=== PATIENT | female | born 1995 | race Caucasian/White ===

== ENCOUNTER 2017-02-02 19:36 | Emergency (ER) | payer BC ==
--- NOTE | ~2017-02-02 | ER ---
PATIENT'S NAME: [facility] AGE: 21 Y [address] ROOM: [place] [address] LOCATION: [facility] ADMIT DATE: 02/02/2017 ER/Outpatient Report DISCHARGE DATE: 02/02/2017 FAMILY PHYSICIAN: Willie Milner MD ATTENDING PHYSICIAN: Ubaldo Stephens Time of Arrival: 1936 hours. Time of Evaluation: 1943 hours. CHIEF COMPLAINT: Possible bite. HISTORY OF PRESENT ILLNESS: The patient is a 21-year-old female, who presents to the emergency department today with chief complaint of possible bites. She reports that it occurred 5 days prior to arrival. It is under her right armpit as well as her left arm. She denies any pain, had some mild itching. No fevers or chills. No nausea or vomiting. No diarrhea or constipation. No chest pain or shortness of breath. PAST MEDICAL HISTORY: None. PAST SURGICAL HISTORY: . SOCIAL HISTORY: The patient denies any tobacco use. Reports occasional alcohol use. Denies any illicit drug use. ALLERGIES: NO KNOWN DRUG ALLERGIES. MEDICATIONS: None. PRIMARY CARE DOCTOR: Willie Milner MD. REVIEW OF SYSTEMS: All systems are reviewed by myself and negative with the exception of those discussed in HPI and past medical history. PHYSICAL EXAMINATION: VITAL SIGNS: Weight 76.8 kg, blood pressure 128/87, pulse 67, respiratory PATIENT'S NAME: [facility] AGE: 21 Y [address] ROOM: [place] [address] LOCATION: [facility] ADMIT DATE: 02/02/2017 ER/Outpatient Report DISCHARGE DATE: 02/02/2017 FAMILY PHYSICIAN: Willie Milner MD ATTENDING PHYSICIAN: Ubaldo Stephens rate 16, temperature 99.4, oxygen saturation 99% on room air. GENERAL: The patient is a 21-year-old female, who appears stated age, in no acute distress at this time. HEENT: Head: Normocephalic, atraumatic. Pupils are equal, round, and reactive to light. NECK: Supple. There is no nuchal rigidity. CARDIOVASCULAR: Regular rate and rhythm. LUNGS: Clear to auscultation. ABDOMEN: Soft, nontender, and nondistended. No rebound, rigidity, or guarding. MUSCULOSKELETAL: The patient moves all 4 extremities. SKIN: The patient does have erythematous lesion under the right armpit. There is some mild petechiae noted as well. There is no fluctuance or induration noted. Left lateral aspect of her deltoid also have similar type lesion. LABORATORY DATA AND X-RAYS: None. IMPRESSION: 1. Rash with suspected insect versus spider bite. 2. Initial visit. EMERGENCY DEPARTMENT COURSE: The patient was brought back to the examination room. Seen and evaluated by myself. History and physical performed as described above. I have discussed the results of history and physical with the patient. I do suspect this is likely a bite from either an insect or a spider. I have discussed using hydrocortisone cream. I have recommended [id number] hydrocortisone cream to use for itch. I have discussed wound care. I have discussed return to care instructions including worsening symptoms or any other concerns return to the emergency department as soon as possible. The patient is agreeable without further questions at this time. DISPOSITION: The patient discharged home in good condition. DO CORY QUINTEROS/mireille PATIENT'S NAME: IZABELA ALVARADO [facility] AGE: 21 Y [address] ROOM: [place] [address] LOCATION: [facility] ADMIT DATE: 02/02/2017 ER/Outpatient Report DISCHARGE DATE: 02/02/2017 FAMILY PHYSICIAN: Willie Milner MD ATTENDING PHYSICIAN: Ubaldo Stephens /[id number] d: 02/03/17 0058 t: 02/04/17 0546, OUTPATIENT REPORT
[~2017-02-02 19:36] MED LIST: ACETAMINOPHEN325 MG PO; FEOSOL325 MG PO; MOTRIN800 MG PO; PERCOCET 5-3251 EACH PO; PRENATAL 1+1)(P1 TAB PO
== END 2017-02-02 19:50 | disposition disaster alternative care site (69) ==
LOC: GMED 19:36
DX: R21 Rash and other nonspecific skin eruption (principal); Z98.890 Other specified postprocedural states